=== PATIENT | female | born 1995 | race Caucasian/White ===

== ENCOUNTER 2022-08-16 22:17 | Day surgery (SDC) | payer OTHER, SELFPAY ==
[2022-08-16 22:25] VITALS: BP 116/80; PULSE 84; RESP 16; TEMP 36.6; O2SAT 96; BMI 21.8
--- NOTE | 2022-08-16 22:40 | CRLHL7_ITS ---
For Patients: As a result of the Century Cures Act, medical imaging exams and procedure reports are released immediately into your electronic medical record. You may view this report before your referring provider. If you have questions, please contact your health care provider. INDICATION: Right lower quadrant abdominal pain TECHNIQUE: CT Abdomen and pelvis with i.v. contrast. Coronal and sagittal reformats were obtained. CONTRAST: 66 mL Isovue 370 COMPARISON: None FINDINGS: Lower chest: Unremarkable. Liver: Mild periportal edema is present which may be due to aggressive intravenous hydration. Spleen: Unremarkable. Pancreas: Unremarkable. Gallbladder: Unremarkable. Kidney: Unremarkable. No kidney or ureteral stones or obstruction seen. Adrenal: Unremarkable. Bowel: Unremarkable. The appendix is mildly enlarged measuring 9 mm and with moderate enhancement of the mucosa and an appendicolith measuring 5 mm at its base. Vascular: Unremarkable. Lymph: Unremarkable. Peritoneum: Unremarkable. No pneumoperitoneum is seen. No significant ascites is noted. Pelvis: An IUD is present in the uterine cavity near the fundus with no identified complications. Moderate bladder distention is noted. There is a cyst or follicle present in the left ovary 2 cm. Soft tissue: Unremarkable. Bone: There is a 1.3 cm sclerotic lesion present in the left iliac bone. IMPRESSIONS: 1. The appendix is mildly enlarged measuring 9 mm and with moderate enhancement of the mucosa and an appendicolith measuring 5 mm at its base. Findings are suspicious for acute appendicitis. 2. There is a 1.3 cm sclerotic lesion present in the left iliac bone. 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 Further assessment with bone scan or MRI may be helpful if the patient has a history of primary malignancy. Dictated by Suleiman Rodgers MD @ 08/17/2022 12:09:40 AM Please note that all CT scans at this facility use dose modulation, iterative reconstruction, and/or weight-based dosing when appropriate to reduce radiation dose to as low as reasonably achievable. Dictated by: Suleiman Rodgers MD @ 08/17/2022 00:11:12 (Electronically Signed)
--- NOTE | 2022-08-16 22:43 | ED.GENADULT ---
HPI - General Adult General Chief complaint: Abdominal Pain Stated complaint: Abdominal Pain Time Seen by Provider: 08/16/22 22:23 Source: patient and family Mode of arrival: ambulatory Limitations: no limitations History of Present Illness HPI narrative: 26-year-old female presents to the emergency department with diffuse abdominal pain that started this morning around 9:00 a.m.. She had a couple of loose stools and that about of diarrhea before noon. This progressed to continued abdominal pain which is constant and achy in nature mainly located in the mid lower abdominal area. It does not really radiate. She did vomit this evening and has had anorexia throughout the day. There is no dysuria, no vaginal discharge, no gynecological complaints. No prior history of similar symptoms. No back pain or flank pain. No chest pain, dyspnea, trauma or injury. She works at the [employer] in the [employer] department, no recent changes to duties. No known illness exposures. Has not tried taking any medication to help with her symptoms. She has a Mirena IUD for contraception. Past medical history she states is benign, she has a gluten intolerance and did have some transient hypothyroidism but this is now euthyroid without medication. She denies prior surgeries. No long-term medications, no allergies to medications. Family history is positive for gallbladder disease in her mother. Socially nonsmoker, did have a couple of alcoholic beverages yesterday. ROS is positive for some general malaise this morning but otherwise for the abdominal symptoms as above and otherwise negative times 12 systems. Related Data Home Medications Medication Instructions Recorded Confirmed No Known Home Medications 08/16/22 08/16/22 Allergies Allergy/AdvReac Type Severity Reaction Status Date / Time gluten Allergy Verified 08/16/22 22:28 [facility] Social History Smoking Status: Never smoker Do you use any of these nicotine containing products: None How often do you have a drink containing alcohol: monthly or less AUDIT-C Alcohol total score: 1 Non-prescribed substance use: marijuana (any form) Non-prescribed substance use details: thc, none today Exam Const: Vital Signs, click to edit/add: Vital Signs - 24 hr 08/16/22 22:25 08/16/22 22:49 Temperature 97.9 F Pulse Rate [Left P ulse Oximeter] 84 Respiratory Rate 16 Blood Pressure [Le ft Upper Arm] 116/80 Pulse Oximetry 96 98 Oxygen Delivery Me thod Room Air Documenting provider has reviewed patient's vital signs: yes Common normals: no apparent distress General appearance: cooperative, comfortable and well kempt HENMT: Common normals: normocephalic Head and scalp: normocephalic Mouth: oral and palatal mucosa normal Throat: posterior oropharynx normal Eye: Common normals: conjunctivae normal General eye: normal appearance of both eyes Conjunctiva: conjunctiva(e) normal Neck & C-Spine: Common normals: full ROM and no lymphadenopathy Resp: Common normals: normal respiratory effort, no use of accessory muscles and clear to auscultation bilaterally Effort & inspection: able to speak in complete sentences Auscultation: clear to auscultation bilaterally Cardio: Common normals: regular rate, regular rhythm, S1 normal heart sound, S2 normal heart sound and no murmurs Rate: regular rate Rhythm: regular rhythm Heart sounds: S1 normal and S2 normal GI: Other: Normal-appearing abdomen, nondistended. Bowel sounds are normoactive in all 4 quadrants. There are no masses. She is tender to the right lower quadrant with no guarding or rebound tenderness. : Common normals: no CVA tenderness Bladder/kidney exam: no CVA tenderness Back & Pelvis: Common normals: no CVA tenderness Extremity: Common normals: normal capillary refill and no pedal edema Neuro: Speech: speech normal Motor exam: no movement abnormalities noted Psych: Appearance: well kempt Attitude: engaged Insight: insight good Judgement: judgment good Skin: Common normals: no rashes or lesions noted General skin exam: no rashes or lesions noted Course Vital Signs Vital signs: Initial Vital Signs Temperature 97.9 F 08/16/22 22:25 Temperature Source Temporal Artery Scan 08/16/22 22:25 Pulse Rate 84 08/16/22 22:25 Pulse Rhythm Regular 08/16/22 22:25 Respiratory Rate 16 08/16/22 22:25 Blood Pressure 116/80 08/16/22 22:25 Blood Pressure Mean 92 08/16/22 22:25 Blood Pressure Position Sitting 08/16/22 22:25 Pulse Oximetry 96 08/16/22 22:25 Oxygen Delivery Method Room Air 08/16/22 22:25 Vital Signs Temperature 97.9 F 08/16/22 22:25 Pulse Rate 84 08/16/22 22:25 Respiratory Rate 16 08/16/22 22:25 Blood Pressure 116/80 08/16/22 22:25 Pulse Oximetry 96 08/16/22 22:25 Oxygen Delivery Method Room Air 08/16/22 22:25 Temperature 97.9 F 08/16/22 22:25 Pulse Rate 84 08/16/22 22:25 Respiratory Rate 16 08/16/22 22:25 Blood Pressure 116/80 08/16/22 22:25 Pulse Oximetry 98 08/16/22 22:49 Oxygen Delivery Method Room Air 08/16/22 22:25 Medical Decision Making MDM Narrative Medical decision making narrative: Differential diagnosis including gallbladder disease, pancreatitis, enteritis, appendicitis, ovarian cyst amongst others. Hiatus index of suspicion for acute appendicitis. Recommended placing an IV, started IV fluids Zofran for nausea. She declines pain medication at this time but can be revisited. Basic labs and CT scan of abdomen and pelvis after urine test. Findings discussed with patient including bone island which is likely benign but will need outpatient follow-up she and her mother both verbalized understanding and agreement. More intensively discussed appendicitis. Recommend surgical consult. Discussed with Dr. Gibbons. She will be admitting the patient for further management. She tells me that she will be putting an antibiotic and further orders. Admission to [facility] for acute appendicitis with anticipated OR later this morning. Lab Data Labs: Lab Results 08/16/22 08/16/22 Range/Units 22:47 22:48 WBC 12.49 H (4.50-11.00) K/uL RBC 4.46 (4.00-5.20) m/uL Hgb 13.8 (12.0-16.0) gm/dL Hct 42.1 (33.0-51.0) % MCV 94 (80-100) fL MCH 31 (26-34) pg MCHC 33 (32-36) gm/dL RDW Coeff of Rosanna 11.8 (11.5-15.5) % Plt Count 227 (140-440) K/uL Neut % (Auto) 79.2 H (42.0-72.0) % Lymph % (Auto) 11.3 L (20-44) % Jasper % (Auto) 7.8 (0.0-11.0) % Eos % (Auto) 0.6 (0.0-7.0) % Baso % (Auto) 0.2 (0.0-3.0) % Neut # (Auto) 9.90 H (1.7-7.0) K/uL Lymph # (Auto) 1.40 (0.90-2.90) K/uL Jasper # (Auto) 1.00 H (0.00-0.90) K/UL Eos # (Auto) 0.10 (0.00-0.50) K/uL Baso # (Auto) 0.00 (0.00-0.30) K/uL Sodium 134 L (135-149) mmol/L Potassium 4.1 (3.6-5.1) mmol/L Chloride 99 (96-114) mmol/L Carbon Dioxide 29 (20-32) mmol/L BUN 8 (5-24) mg/dL Creatinine 0.5 (0.5-1.5) mg/dL Estimated Creat Clear 161.02 Estimated GFR 133 ml/min Glucose 103 (60-115) mg/dL Calcium 8.9 (8.4-10.6) mg/dL Total Bilirubin 2.7 H (0.1-1.5) mg/dL AST 24 (12-35) U/L ALT 18 (4-35) U/L Alkaline Phosphatase 38 L (40-150) U/L C-Reactive Protein 2.5 H (0.5-1.0) mg/dL Total Protein 7.9 (6.0-8.3) g/dL Albumin 4.7 (3.3-5.0) g/dL Lipase 30 (23-300) U/L HCG, Qual Negative (Negative) Urine Color Yellow (Yellow) Urine Appearance Clear (Clear) Urine pH 7.0 (5.0-8.5) Ur Specific Bouton 1.015 (1.000-1.030) Urine Protein Negative (Negative) Urine Glucose (UA) Negative (Negative) Urine Ketones 1+ A (Negative) Urine Blood Negative (Negative) Urine Nitrite Negative (Negative) Urine Bilirubin Negative (Negative) Urine Urobilinogen 0.2 (0.2-1.0) Ur Leukocyte Esterase Negative (Negative) Imaging Data CT scan - abdomen: Attestation: I have reviewed the pertinent imaging results. My impression: Acute appendicitis Radiologist's impression: IMPRESSIONS: 1. The appendix is mildly enlarged measuring 9 mm and with moderate enhancement of the mucosa and an appendicolith measuring 5 mm at its base. Findings are suspicious for acute appendicitis. 2. There is a 1.3 cm sclerotic lesion present in the left iliac bone. 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 Further assessment with bone scan or MRI may be helpful if the patient has a history of primary malignancy. Discharge Plan Discharge Prescriptions: No Action No Known Home Medications Follow Up/Referrals: Provider,Not a Local [Primary Care Provider] -
[2022-08-16 22:49] VITALS: O2SAT 98
[2022-08-16] MEDS: LACTATED RINGERS 1000 ML 1,000 ML IV (22:51)
[2022-08-16] MEDS: ONDANSETRON 2 MG/ML inj 4 MG IVP (22:51)
[2022-08-16 22:58] LABS: Basophils Percent Auto 0.2 % (0.0-3.0); Eosinophils Percent Auto 0.6 % (0.0-7.0); Hematocrit 42.1 % (33.0-51.0); Hemoglobin* 13.8 gm/dL (12.0-16.0); Immature Granulocytes Pct Auto 0.9 %; Lymphocytes Percent Auto 11.3 % (20-44); Mean Corpuscular HGB Conc 33 gm/dL (32-36); Mean Corpuscular Hemoglobin 31 pg (26-34); Mean Corpuscular Volume 94 fL (80-100); Monocytes Percent Auto 7.8 % (0.0-11.0); Neutrophils Percent Auto 79.2 % (42.0-72.0); Platelet Count* 227 K/uL (140-440); RDW Coefficient of Variation % 11.8 % (11.5-15.5); Red Blood Count 4.46 m/uL (4.00-5.20); White Blood Count* 12.49 K/uL (4.50-11.00)
[2022-08-16 22:59] LABS: Appearance Urine Clear (Clear); Bilirubin Urine Negative (Negative); Blood Urine Negative (Negative); Color Urine Yellow (Yellow); Glucose Urine Negative (Negative); Ketones Urine 1+ (Negative); Leukocyte Esterase Urine Negative (Negative); Nitrite Urine Negative (Negative); Protein Urine Negative (Negative); Specific Gravity Urine 1.015 (1.000-1.030); Urobilinogen Urine 0.2 (0.2-1.0)
[2022-08-16 23:01] LABS: Slide Review Reflex No
[2022-08-16 23:02] LABS: HCG Qualitative* Negative (Negative)
[2022-08-16 23:08] LABS: Albumin* 4.7 g/dL (3.3-5.0); Chloride* 99 mmol/L (96-114)
[2022-08-16 23:09] LABS: Potassium* 4.1 mmol/L (3.6-5.1); Sodium* 134 mmol/L (135-149)
[2022-08-16 23:11] LABS: Creatinine* 0.5 mg/dL (0.5-1.5); Est. Creatinine Clearance* 161.02; Estimated Glomerular Filt Rate 133 ml/min
[2022-08-16 23:12] LABS: Alanine Aminotransferase* 18 U/L (4-35); Alkaline Phosphatase* 38 U/L (40-150); Aspartate Amino Transferase* 24 U/L (12-35); Bilirubin Total* 2.7 mg/dL (0.1-1.5); Blood Urea Nitrogen* 8 mg/dL (5-24); Calcium* 8.9 mg/dL (8.4-10.6); Carbon Dioxide* 29 mmol/L (20-32); Glucose* 103 mg/dL (60-115); Lipase* 30 U/L (23-300); Total Protein* 7.9 g/dL (6.0-8.3)
[2022-08-16 23:15] LABS: C Reactive Protein* 2.5 mg/dL (0.5-1.0)
[2022-08-17] VITALS (16 sets, daily range): BP systolic 99–129; BP diastolic 61–84; PULSE 59–89; RESP 12–18; TEMP 36.5–37.2; O2SAT 97–100; BMI 21.5
[2022-08-17] MEDS: PIPERACILLIN/TAZOBACTAM 3.375 GM in 0.9 % SODIUM CHLORIDE Mini-bag 100 ML IVPB (00:42)
[2022-08-17 00:57] LABS: Bilirubin Direct* 0.1 mg/dL (0.0-0.5)
[2022-08-17 01:09] LABS: SARS PCR* Negative SARS-CoV-2 (Negative)
[2022-08-17] MEDS: HYDROmorphone 0.5 mg/0.5 ml inj IVP ×2 (01:19→05:57)
[2022-08-17] MEDS: ONDANSETRON 2 MG/ML inj IVP (01:19)
[2022-08-17] MEDS: LACTATED RINGERS 1000 ML 1,000 ML 100 ML IV (02:11)
--- NOTE | 2022-08-17 03:21 | PC.NURSE ---
Patient admitted to 280. Pleasant and cooperative. Temp 99.0. Rating abdominal pain 4/10.
--- NOTE | 2022-08-17 06:40 | PC.NURSE ---
0330-07: indep in room. Dilaudid given for pain. Pre-op EKG completed.
--- NOTE | 2022-08-17 07:18 | PM.GSHP ---
History of Present Illness History of Present Illness Date Seen: 08/17/22 Chief complaint: Abdominal Pain Narrative: Saima Eisenberg is a 26 year old female who presented to the emergency department last evening with abdominal pain, in the lower abdomen primarily. She states that yesterday morning she had pain all over her abdomen. She went to work but came home early because of persistent pain. She tried eating at 4:00 p.m.. Her pain worsened and became primarily in the lower abdomen and slightly more on the right. She eventually came into the emergency department because of the worsening pain. She has had some nausea and vomited last evening. She had a normal bowel movement yesterday morning and then some diarrhea in the afternoon. Movement makes the pain worse. She has had some dysuria with lower abdominal pain with voiding. No fevers. [facility] Social History Highest level of school completed/degree received: Bachelor's degree Smoking Status: Never smoker Do you use any of these nicotine containing products: None How often do you have a drink containing alcohol: monthly or less AUDIT-C Alcohol total score: 1 Non-prescribed substance use: marijuana (any form) Non-prescribed substance use details: thc, none today Caffeine: Yes service: No Meds Home Medications and Allergies Home Medications Medication Instructions Recorded Confirmed Type No Known Home Medications 08/16/22 08/16/22 History Allergies Allergy/AdvReac Type Severity Reaction Status Date / Time gluten Allergy Verified 08/16/22 22:28 Exam Narrative: Exam Narrative: General appearance: Alert, cooperative, and in no distress Eyes: PERRLA, eye lids clear, and sclera white HENT Head: Normocephalic Ears: External ears normal Pulmonary: Clear to auscultation bilaterally Cardiovascular Heart: Regular rate Extremities: warm and well perfused Gastrointestinal Abdominal: No scars. No hernias. Nondistended. Tender in the lower abdomen, worse on the right with rebound Musculoskeletal: Extremities: Upper: Both upper extremities have normal joint range of motion and intact strength. Lower: Both lower extremities have normal joint range of motion and intact strength. Skin: Normal skin color, texture, and turgor. No rashes or lesions. Neurologic: No focal deficits Psychiatric: Alert, oriented, cooperative, normal affect. Const: Vital Signs, click to edit/add: Vital Signs - 24 hr 08/16/22 22:25 08/16/22 22:49 08/17/22 01:24 Temperature 97.9 F Pulse Rate [Left P ulse Oximeter] 84 79 Respiratory Rate 16 16 Blood Pressure [Le ft Upper Arm] 116/80 122/81 Blood Pressure [Ri ght Arm] Pulse Oximetry 96 98 98 Oxygen Delivery Me thod Room Air Room Air 08/17/22 01:55 08/17/22 03:00 08/17/22 05:47 Temperature 99.0 F 98.5 F Pulse Rate [Left P ulse Oximeter] 89 84 Respiratory Rate 18 18 18 Blood Pressure [Le ft Upper Arm] Blood Pressure [Ri ght Arm] 120/79 99/61 Pulse Oximetry 98 97 Oxygen Delivery Me thod Room Air Room Air Results Results Labs: White blood cell count is elevated at 12.4 Bilirubin is elevated at 2.7. This is primarily indirect however. Urine test is negative UA is positive for ketones but otherwise negative. COVID negative. Abdomen CT scan report/results: report reviewed and image reviewed Additional studies: CT scan of the abdomen and pelvis: IMPRESSIONS: 1. The appendix is mildly enlarged measuring 9 mm and with moderate enhancement of the mucosa and an appendicolith measuring 5 mm at its base. Findings are suspicious for acute appendicitis. 2. There is a 1.3 cm sclerotic lesion present in the left iliac bone. 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 Further assessment with bone scan or MRI may be helpful if the patient has a history of primary malignancy. Dictated by Suleiman Rodgers MD @ 08/17/2022 12:09:40 AM Please note that all CT scans at this facility use dose modulation, iterative reconstruction, and/or weight-based dosing when appropriate to reduce radiation dose to as low as reasonably achievable. Assessment and Plan Assessment and plan (1) Acute appendicitis: Status: Acute
--- NOTE | 2022-08-17 07:47 | W.ANESCHARGE ---
Anesthesia Charges Start Date/Time Anesthesia Start Date: 08/17/22 Anesthesia Start Time: 07:25 Stop Date/Time Anesthesia Stop Date: 08/17/22 Anesthesia Stop Time: 08:25
--- NOTE | 2022-08-17 07:56 | W.ANESCHARGE ---
Anesthesia Charges Start Date/Time Anesthesia Start Date: 08/17/22 Anesthesia Start Time: 07:25 Stop Date/Time Anesthesia Stop Date: 08/17/22 Anesthesia Stop Time: 08:25
[2022-08-17] MEDS: BUPIVACAINE 0.25% 30 ML INJECTION (08:00)
[2022-08-17] MEDS: LACTATED RINGERS 1000 ML 1,000 ML 35 ML IV (08:20)
--- NOTE | 2022-08-17 08:24 | PM.GSPRC ---
Operative Note Date of procedure: 08/17/22 Pre-op diagnosis: Acute appendicitis Post-op diagnosis: Same Type of Procedure: Laparoscopic appendectomy Indications: The patient is a 26-year-old female who presented to the emergency department with abdominal pain. Workup revealed leukocytosis. CT scan showed acute appendicitis without evidence of perforation. After discussion of management, she agreed to proceed with appendectomy. Procedure Description: After discussing the risks and benefits of the procedure, the patient signed informed consent.? The operative site was marked and the patient was brought to the operating room and placed on the operating table in supine position.? Care was taken to pad the patient's pressure points.?? The patient was then intubated by anesthesia.?? The operative site was then prepped and draped in the usual sterile fashion.? A time-out was then performed. Entrance to the abdomen was obtained via a 5 mm optical trocar in the left upper quadrant. The abdomen was insufflated and briefly surveyed for any signs of injury. There were none. A 12 mm port was placed inferior to the umbilicus as well as a 5 mm port in the left lower quadrant. Both were done under direct vision. The patient was then placed in Trendelenburg position with the right side up. The small bowel was gently moved out of the way and the appendix was in view. There was fibrinous inflammation on the tip of the appendix, but no perforation. The appendix was grasped and pulled into view. A mesenteric window was created between the base of the appendix and the mesoappendix. An Endo-MAMIE purple load stapler was then used to transect the appendix at its base. A vascular load stapler was then used to divide the mesoappendix. The staple lines were inspected for bleeding. There was none. The appendix was then removed from the abdomen using an Endo-Catch bag. The specimen was sent to pathology. The ports were removed and the abdomen desufflated. The 12 mm port site fascia was closed with 0 Vicryl. The skin was then closed with absorbable subcuticular suture. Sterile dressings were then applied. Instrument sponge and needle counts were correct at the end of the case. The patient was then woken and transported to the PACU in stable condition. ? The patient tolerated the procedure well. Findings: Acute, non perforated appendicitis Anesthesia: GETA Surgeon: Michelle Bahena MD Estimated blood loss (mL): 5 Specimen: Appendix Condition: stable Disposition: PACU
[2022-08-17] MEDS: HYDROCODONE-ACETAMIN 5-325 MG 1 TAB PO (09:11)
== END 2022-08-17 10:15 | disposition home or self-care (01) ==
LOC: ED 08-17 00:54 → SS 08-17 00:57 → MEDSURG 08-17 01:27
PROVIDERS: Emergency Provider Family Medicine; Referring Provider Emergency Medicine; Visit Provider Surgery
PROC: 0DTJ4ZZ Resection of Appendix, Percutaneous Endoscopic Approach (ICD-10-PCS; CPT 44970; principal; 2022-08-17 07:00)
DX: K35.80 Unspecified acute appendicitis (principal); M89.9 Disorder of bone, unspecified
CPT/HCPCS: 44970; 00840; 36415; 74177; 80053; 81003; 82248; 83690; 84703; 85025; 86140; 87635; 94761; 99284; 99285; A9270; J1100; J1170; J1885; J2250; J2405; J2543; J2704; J3010; J3490; J7120; Q9967